=== PATIENT | male | born 1960 | race Caucasian/White ===

== ENCOUNTER 2019-10-28 06:04 | Day surgery (SDC) | payer BC, OTHER ==
[~2019-10-28] VITALS: Ht 175.3 cm; Wt 88.5 kg
[~2019-10-28 06:04] MED LIST: MULTIVITAMINS PO
[2019-10-28 07:47] VITALS: BP 122/73
[2019-10-28] MEDS ORDERED: HYDROCODON-ACE1 EA11 PO (08:45)
[2019-10-28 10:33] VITALS: BP 122/73
--- NOTE | 2019-10-28 11:50 | O ---
[facility] [place] [address] [place] [address] OPERATIVE REPORT Name: NATALI JOHNSON Room #: 150-1 [facility] M.R.#: [id number] Admission: 10/28/19 Attend Phys: Bill Torres MD Discharge: Date of : 64 Report #: [id number] THIS REPORT FOR: cc: Gabino Ruelas MD, Steven E. MD Franey, Thomas A. MD ~ CC: Rosibel Torres MD DATE OF SERVICE: 10/28/[address] Gabino Ruelas and Dr. Bill Torres. PREOPERATIVE DIAGNOSIS: Right inguinal hernia. POSTOPERATIVE DIAGNOSIS: Right inguinal hernia with a right cord lipoma. PROCEDURE: Right inguinal hernia repair with Prolene hernia system mesh and excision of a right cord lipoma. SURGEON: Bill Torres MD ANESTHESIA: Local IV sedation. DESCRIPTION OF PROCEDURE: The patient was brought to the operating room and placed on the operative table in the supine position. Sequential compression devices were in place for DVT prophylaxis. There was no indication for preoperative antibiotics. The patient underwent IV sedation. The right inguinal area was prepped and draped in a sterile fashion. Skin and subcutaneous tissue were then infiltrated with 0.5% Marcaine and 1% Xylocaine in a 1:1 mixture. Right inguinal skin incision was then performed using #10 scalpel blade. Hemostasis obtained using the electrocautery. Dissection was carried down through the subcutaneous tissue, the external oblique fascia, which was then incised with a knife and opened with the Metzenbaum scissors. The ilioinguinal nerve was identified, dissected free, injected with a local mixture and preserved. Cord was then elevated and held into place with Hamburg drain. Cremasteric muscle fibers were then split in the direction of their fibers using clamp and electrocautery. A cord lipoma was identified, dissected free, clamped, excised and tied with a 0 chromic tie. This was sent as specimen to pathology. An indirect inguinal hernia sac was identified, dissected free and reduced back through the internal ring. The floor was inspected and was found to be intact, but it was markedly weakened. I placed an extended Prolene hernia system mesh through the internal ring and the underlay patch was then deployed [address] [address] OPERATIVE REPORT Name: NATALI JOHNSON Room #: 150-1 [facility].R.#: [id number] Admission: 10/28/19 Attend Phys: Bill Torres MD Discharge: Date of : 64 Report #: [id number] in the preperitoneal space. The connector was left in the internal ring and the floor was then tightened using a running 2-0 Prolene 2-layer Bassini repair. The overlay patch was then deployed in the inguinal canal and it was secured to the pubic tubercle with the same running 2-0 Prolene suture. The mesh was then secured superiorly and at the connector using simple interrupted 2-0 Vicryl suture. The mesh was split and wrapped around the cord, secured to the inguinal ligament with simple interrupted 2-0 Vicryl suture. The cord and ilioinguinal nerve were then returned to the canal intact. The external oblique fascia was then closed using running 2-0 Vicryl suture. Jaimee's fascia was then reapproximated using 3 simple interrupted 2-0 chromic sutures and the skin then closed with a running 4-0 subcuticular Vicryl stitch. The wound was then dressed with Mastisol, 1/2-inch Steri-Strips cut in half, Telfa, 4 x 4 gauze, sponge and tape. The patient was then taken to the recovery room awake, alert, in good condition. Estimated blood loss was approximately 10 mL and the patient tolerated the procedure well. All sponge, lap and instrument counts correct x 2. <ELECTRONICALLY SIGNED> By: Bill Torres MD 10/28/19 1150 1024 1122 Bill Torres MD /nt
--- NOTE | 2019-10-30 12:07 | PATH ---
[facility] [place] [address] [place] [address] PATHOLOGY RPT PROCEDURE Name: ALIREZA JOHNSON Room #: DEP [facility] M.R.#: [id number] Admission: 10/28/19 Date of : 64 Discharge: 10/28/19 Report #: [id number] Path Case #: [id number] [facility] Accession Number: [id number] . 01 Material submitted: . inguinal area - CORD LIPOMA . 01 Clinical history: . RIGHT INGUINAL HERNIA, COVID . 02 Diagnosis: Mature adipose tissue, cord lipoma, excision: - Compatible with lipoma. . (IUV:mml; 10/29/2019) [facility] 10/29/2019 1517 Local . 02 Electronically signed: . Kristine Mora MD, Pathologist NPI- [id number] . 01 Gross description: . The specimen is received in formalin, labeled "Alireza Johnson", "cord lipoma". Received is a poorly circumscribed segment of bright yellow, lobulated adipose tissue measuring 6.2 x 4.1 x 1.3 cm. Sectioning reveals a bright yellow, lobulated adipose cut surface with no solid masses or nodules identified. Dam Operator sections are submitted in cassette A1.(SNA; 10/28/2019) [facility] 10/28/2019 1647 Local . 02 Pathologist provided ICD-10: K40.90, U07.1 . 02 CPT . 408008 Specimen Comment: A courtesy copy of this report has been sent to [phone] Specimen Comment: [phone] Specimen Comment: Report sent to / DR RODRIGUEZ Performed at: [address], [place] [id number] MD Arnold Zhao MD Phone: [phone] Performed at: [address] [id number] MD Kristine Mora MD Phone: [phone]
== END 2019-10-28 11:17 | disposition home or self-care (01) ==
LOC: TBA 06:04 → OR 06:04 → TBA 06:05 → OR 09:36
PROVIDERS: ATTEND Surgery
DX: K40.90 Unilateral inguinal hernia, without obstruction or gangrene, not specified as recurrent (principal); D17.6 Benign lipomatous neoplasm of spermatic cord; Z98.890 Other specified postprocedural states; Z79.899 Other long term (current) drug therapy
CPT/HCPCS: 50010; 50101; 50386; 50417; 54111; 56524; 56525; 56526; 56528; 62110; 62850; 70005